=== PATIENT | male | born 1995 | race Caucasian/White ===

== ENCOUNTER 2019-09-05 08:16 | Emergency (ER) | payer SELFPAY ==
[~2019-09-05] VITALS: Ht 188 cm; Wt 77.1 kg
[2019-09-05] MEDS ORDERED: MINO50 PO (08:55)
== END 2019-09-05 09:09 | disposition home or self-care (01) ==
LOC: ER 08:16
DX: L02.32 Furuncle of buttock (principal); L02.31 Cutaneous abscess of buttock
CPT/HCPCS: 99283